=== PATIENT | male | born 1980 | race Two or more races ===

== ENCOUNTER 2018-05-09 00:54 | Emergency (ER) | payer MEDICAID ==
[~2018-05-09] VITALS: Ht 185.4 cm; Wt 89.6 kg
[2018-05-09 00:56] VITALS: BP 144/82
[2018-05-09] MEDS ORDERED: ELVI1TAB3 PO (01:04)
[2018-05-09] MEDS ORDERED: LORazepam 1MG TABLET ONE (01:28)
[2018-05-09] MEDS ORDERED: LORazepam 1MG TABLET PO ONE ×2 (01:30)
== END 2018-05-09 01:58 | disposition home or self-care (01) ==
LOC: ED 01:48
DX: F41.9 Anxiety disorder, unspecified (principal); Z21 Asymptomatic human immunodeficiency virus [HIV] infection status
CPT/HCPCS: 99283; 99284